=== PATIENT | male | born 1960 | race Caucasian/White ===

== ENCOUNTER 2016-12-21 15:58 | Inpatient (IN) | payer OTHER ==
[~2016-12-21] VITALS: Ht 177.8 cm; Wt 84.8 kg
[2016-12-21 16:10] VITALS: BP_SYST 129
[2016-12-21 16:46] LABS: BASOPHILS % (AUTO) 0.5 % (0.0-2.0); EOSINOPHILS % (AUTO) 0.8 % (0.0-4.0); HEMATOCRIT 44.1 % (36-54); HEMOGLOBIN 14.6 g/dL (14.0-18.0); LYMPHOCYTES # (AUTO) 1.3 K/uL (1.0-5.5); MEAN CORPUSCULAR HEMOGLOBIN 29 pg (27-31); MEAN CORPUSCULAR HGB CONC 33 % (32-36); MEAN CORPUSCULAR VOLUME 87 fL (79.0-98.0); MONOCYTES # (AUTO) 0.7 K/uL (0.0-1.0); NEUTROPHILS # (AUTO) 4.1 K/uL (1.8-7.7); NEUTROPHILS % (AUTO) 64.7 % (40.0-70.0); PLATELET COUNT (AUTO) 237 K/uL (130-430); RED BLOOD CELL COUNT(AUTO) 5.07 MIL/uL (4.2-6.2); RED CELL DISTRIBUTION WIDTH 12.5 % (9.0-15.0); WHITE BLOOD COUNT (AUTO) 6.1 K/uL (4.8-10.8)
[2016-12-21 16:57] LABS: BILIRUBIN,URINE NEGATIVE (NEGATIVE); BLOOD, URINE NEGATIVE (NEGATIVE); CLARITY/URINE CLEAR (CLEAR); COLOR,URINE YELLOW (YELLOW); GLUCOSE,URINE NEGATIVE (NEGATIVE); KETONES,URINE NEGATIVE (NEGATIVE); LEUKOCYTE ESTERASE ,URINE NEGATIVE (NEGATIVE); NITRITE, URINE NEGATIVE (NEGATIVE); PROTEIN URINE NEGATIVE (NEGATIVE)
[2016-12-21 17:12] LABS: CALCIUM 9.5 mg/dL (8.4-11.0); CREATININE 1.24 mg/dL (0.55-1.30); POTASSIUM 3.8 mmol/L (3.5-5.1)
[2016-12-21 17:14] LABS: INR 1.1 (0.80-1.20); PROTHROMBIN TIME 11.6 SECS (9.5-12.5)
[2016-12-21 17:17] LABS: ALBUMIN 4.1 g/dL (3.4-4.8)
[2016-12-21] MEDS: KETOROLAC TROMETHAMINE 60 MG/2 ML VIAL IM ONE ×2 (17:45→17:48)
[2016-12-21] MEDS ORDERED: SIMV10TA6 PO (18:40)
[2016-12-21] MEDS ORDERED: LISI10TA5 PO (18:40)
[2016-12-21] MEDS ORDERED: NACL 0.9% 1,000 ML IV ONE (18:45)
[2016-12-21] MEDS ORDERED: cefOXitin 1 GM IVPB PREMIX 50 ML IV ONE (18:45)
[2016-12-21] MEDS ORDERED: MORPHINE 2 MG/ML INJ. SYRINGE IVP PRN (19:15)
[2016-12-21] MEDS ORDERED: ACETAMINOPHEN 325 MG TABLET PO PRN (19:15)
[2016-12-21] MEDS ORDERED: ONDANSETRON HCL 4 MG/2 ML VIAL IVP PRN (19:15)
[2016-12-21 20:00] VITALS: BP_SYST 129
[2016-12-21 20:10] LABS: FREE T4 (FREE THYROXINE) 0.8 ng/dL (0.6-1.6); THYROID STIMULATING HORMONE 2.34 uIu/mL (0.34-4.82)
[2016-12-21 20:29] VITALS: BP_SYST 138
[2016-12-21] MEDS ORDERED: LISINOPRIL 10 MG TABLET (PRINIVIL) PO ONE (22:00)
[2016-12-21] MEDS ORDERED: SIMVASTATIN 10 MG TABLET PO ONE (22:00)
[2016-12-21] MEDS: DOCUSATE SODIUM 100 MG CAPSULE PO SCH (22:51)
[2016-12-21] MEDS: NACL 0.9% 1,000 ML IV SCH (23:38)
[2016-12-22 01:12] VITALS: BP_SYST 136
[2016-12-22 06:02] VITALS: BP_SYST 115
[2016-12-22 09:04] LABS: BASOPHILS % (AUTO) 0.4 % (0.0-2.0); EOSINOPHILS # (AUTO) 0.1 K/uL (0.0-0.4); EOSINOPHILS % (AUTO) 0.8 % (0.0-4.0); HEMATOCRIT 47.2 % (36-54); HEMOGLOBIN 15.5 g/dL (14.0-18.0); LYMPHOCYTES # (AUTO) 1.4 K/uL (1.0-5.5); LYMPHOCYTES % (AUTO) 20.3 % (20.5-51.5); MEAN CORPUSCULAR HEMOGLOBIN 29 pg (27-31); MEAN CORPUSCULAR HGB CONC 33 % (32-36); MEAN CORPUSCULAR VOLUME 89 fL (79.0-98.0); MONOCYTES # (AUTO) 0.6 K/uL (0.0-1.0); MONOCYTES % (AUTO) 8.6 % (1.7-9.3); NEUTROPHILS % (AUTO) 69.9 % (40.0-70.0); PLATELET COUNT (AUTO) 241 K/uL (130-430); RED BLOOD CELL COUNT(AUTO) 5.33 MIL/uL (4.2-6.2); RED CELL DISTRIBUTION WIDTH 12.3 % (9.0-15.0); WHITE BLOOD COUNT (AUTO) 7.1 K/uL (4.8-10.8)
[2016-12-22] MEDS: DOCUSATE SODIUM 100 MG CAPSULE PO SCH (09:07)
[2016-12-22] MEDS: NACL 0.9% 1,000 ML IV SCH ×3 (09:12→19:55)
[2016-12-22 09:26] LABS: CALCIUM 9.6 mg/dL (8.4-11.0); CREATININE 1.2 mg/dL (0.55-1.30); POTASSIUM 3.8 mmol/L (3.5-5.1)
[2016-12-22 09:31] LABS: ALBUMIN 3.8 g/dL (3.4-4.8); TOTAL BILIRUBIN 3.8 mg/dL (0.0-1.0)
[2016-12-22 12:32] VITALS: BP_SYST 125
[2016-12-22 16:42] VITALS: BP_SYST 134
[2016-12-22] MEDS ORDERED: LYR50 PO (18:46)
[2016-12-22] MEDS ORDERED: OXYC10TA71 PO (18:46)
[2016-12-22] MEDS ORDERED: LOSA100T11 PO (18:46)
[2016-12-22] MEDS ORDERED: ZOLP10TA6 PO (18:46)
[2016-12-22] MEDS ORDERED: NOR10 PO (18:46)
[2016-12-22] MEDS ORDERED: IBUP-1480 PO (18:46)
[2016-12-22] MEDS ORDERED: AMIT75TA2 PO (18:46)
[2016-12-22 20:00] VITALS: BP_SYST 129
[2016-12-22] MEDS ORDERED: SIMVASTATIN 10 MG TABLET PO SCH (21:00)
[2016-12-22] MEDS ORDERED: LISINOPRIL 10 MG TABLET (PRINIVIL) PO SCH (21:00)
[2016-12-23 00:16] VITALS: BP_SYST 115
[2016-12-23 04:29] VITALS: BP_SYST 120
[2016-12-23] MEDS: NACL 0.9% 1,000 ML IV SCH (04:35)
[2016-12-23 06:21] LABS: HEMOGLOBIN A1C 4.9 % (4.8-5.6)
[2016-12-23 06:56] LABS: BASOPHILS % (AUTO) 0.4 % (0.0-2.0); EOSINOPHILS # (AUTO) 0.1 K/uL (0.0-0.4); EOSINOPHILS % (AUTO) 1.5 % (0.0-4.0); HEMATOCRIT 39.2 % (36-54); HEMOGLOBIN 13.2 g/dL (14.0-18.0); LYMPHOCYTES # (AUTO) 1.2 K/uL (1.0-5.5); LYMPHOCYTES % (AUTO) 25.4 % (20.5-51.5); MEAN CORPUSCULAR HEMOGLOBIN 30 pg (27-31); MEAN CORPUSCULAR HGB CONC 34 % (32-36); MEAN CORPUSCULAR VOLUME 89 fL (79.0-98.0); MONOCYTES # (AUTO) 0.5 K/uL (0.0-1.0); MONOCYTES % (AUTO) 10.7 % (1.7-9.3); NEUTROPHILS # (AUTO) 2.8 K/uL (1.8-7.7); PLATELET COUNT (AUTO) 202 K/uL (130-430); RED BLOOD CELL COUNT(AUTO) 4.42 MIL/uL (4.2-6.2); RED CELL DISTRIBUTION WIDTH 12.1 % (9.0-15.0); WHITE BLOOD COUNT (AUTO) 4.6 K/uL (4.8-10.8)
[2016-12-23 07:12] LABS: ALBUMIN 3.4 g/dL (3.4-4.8); CALCIUM 9.2 mg/dL (8.4-11.0); CREATININE 1.11 mg/dL (0.55-1.30); PHOSPHORUS 3.6 mg/dL (2.7-4.5); POTASSIUM 3.6 mmol/L (3.5-5.1); TOTAL BILIRUBIN 3.3 mg/dL (0.0-1.0)
[2016-12-23 08:05] VITALS: BP_SYST 116
[2016-12-23] MEDS ORDERED: ONDA4TAB5 PO (08:14)
[2016-12-23] MEDS ORDERED: METR500T PO (08:14)
[2016-12-23] MEDS ORDERED: LEVO750T45 PO (08:14)
[2016-12-23] MEDS ORDERED: metroNIDAZOLE 250 mg/NS 50 ML IV SCH (08:15)
[2016-12-23] MEDS ORDERED: LEVOFLOXACIN 250 MG/D5W 50 ML IV SCH (08:15)
[2016-12-23 08:38] LABS: T4 (THYROXINE) 6.7 ug/dL (4.5-12.0)
[2016-12-23 12:12] VITALS: BP_SYST 116
== END 2016-12-23 13:50 | disposition home or self-care (01) | DRG 392 ==
LOC: SED 15:58 → STU 19:12
PROVIDERS: ADMIT Family Medicine; ATTEND Family Medicine
DX: K57.92 Diverticulitis of intestine, part unspecified, without perforation or abscess without bleeding (principal); N28.1 Cyst of kidney, acquired; K80.20 Calculus of gallbladder without cholecystitis without obstruction; E78.5 Hyperlipidemia, unspecified; E80.4 Gilbert syndrome; I10 Essential (primary) hypertension; K57.90 Diverticulosis of intestine, part unspecified, without perforation or abscess without bleeding; E80.6 Other disorders of bilirubin metabolism; Z88.0 Allergy status to penicillin
CPT/HCPCS: 36415; 74181; 76700-TC; 80053; 80061; 81003; 82150-TC; 83036; 83605; 83690-TC; 83735-TC; 83880; 84100-TC; 84436; 84439; 84443-TC; 84479; 85025; 85610-TC; 85730-TC; 87040-TC; 96365; 96367; 99285; J0694; J1885; J1956; J3490; J7030

== ENCOUNTER 2017-12-25 22:42 | Inpatient (IN) | payer OTHER ==
[~2017-12-25] VITALS: Ht 177.8 cm; Wt 86.2 kg
[~2017-12-25 22:42] MED LIST: AMIT75TA2 PO; IBUP-1970 PO; LEVO750T45 PO; LISI10TA5 PO; LOSA100T3 PO; LYR50 PO; METR500T PO; NOR10 PO; ONDA4TAB5 PO; OXYC10TA56 PO; SIMV10TA6 PO; ZOLP10TA6 PO
[2017-12-25] MEDS ORDERED: NACL 0.9% 1,000 ML IV ONE (22:44)
[2017-12-25 22:45] VITALS: BP_SYST 146
[2017-12-25] MEDS ORDERED: ONDANSETRON HCL 4 MG/2 ML VIAL IVP ONE (22:45)
[2017-12-25] MEDS ORDERED: MORPHINE 4 MG/ML INJ. SYRINGE IVP ONE (23:15)
[2017-12-25] MEDS ORDERED: NA PHOS,M-B/NA PHOS,DI-BA 118 ML (FLEET ENEMA) RC ONE (23:15)
[2017-12-25 23:23] LABS: BASOPHILS % (AUTO) 0.5 % (0.0-2.0); EOSINOPHILS % (AUTO) 0.5 % (0.0-4.0); HEMATOCRIT 46.6 % (36-54); HEMOGLOBIN 15.4 g/dL (14.0-18.0); LYMPHOCYTES # (AUTO) 0.9 K/uL (1.0-5.5); LYMPHOCYTES % (AUTO) 10.4 % (20.5-51.5); MEAN CORPUSCULAR HEMOGLOBIN 30 pg (27-31); MEAN CORPUSCULAR HGB CONC 33 % (32-36); MEAN CORPUSCULAR VOLUME 92 fL (79.0-98.0); MONOCYTES # (AUTO) 0.7 K/uL (0.0-1.0); MONOCYTES % (AUTO) 7.8 % (1.7-9.3); NEUTROPHILS # (AUTO) 6.7 K/uL (1.8-7.7); NEUTROPHILS % (AUTO) 80.8 % (40.0-70.0); PLATELET COUNT (AUTO) 186 K/uL (130-430); RED BLOOD CELL COUNT(AUTO) 5.09 MIL/uL (4.2-6.2); RED CELL DISTRIBUTION WIDTH 12.2 % (9.0-15.0); WHITE BLOOD COUNT (AUTO) 8.3 K/uL (4.8-10.8)
[2017-12-25 23:31] LABS: CREATININE 1.26 mg/dL (0.55-1.30); POTASSIUM 3.8 mmol/L (3.5-5.1)
[2017-12-25 23:35] LABS: PROTHROMBIN TIME 10.5 SECS (9.5-12.5)
[2017-12-25 23:38] LABS: TOTAL BILIRUBIN 4.3 mg/dL (0.0-1.0)
[2017-12-25 23:55] LABS: BILIRUBIN,URINE 1+ (NEGATIVE); BLOOD, URINE NEGATIVE (NEGATIVE); CLARITY/URINE CLEAR (CLEAR); COLOR,URINE YELLOW (YELLOW); GLUCOSE,URINE NEGATIVE (NEGATIVE); KETONES,URINE NEGATIVE (NEGATIVE); LEUKOCYTE ESTERASE ,URINE NEGATIVE (NEGATIVE); NITRITE, URINE NEGATIVE (NEGATIVE); PROTEIN URINE 1+ (NEGATIVE)
[2017-12-26 00:04] LABS: BACTERIA,URINE FEW /HPF (None Seen); MUCUS,URINE None Seen /LPF (None Seen); RBC,URINE 0-3 /HPF (0-3); WBC,URINE 0-3 /HPF (0-3); YEAST,URINE None Seen /HPF (None Seen)
[2017-12-26] MEDS ORDERED: MORPHINE 2 MG/ML INJ. SYRINGE IVP PRN ×3 (00:30→06:00)
[2017-12-26] MEDS ORDERED: ONDANSETRON HCL 4 MG/2 ML VIAL IVP PRN ×2 (00:30→06:00)
[2017-12-26 01:31] VITALS: BP_SYST 153
[2017-12-26] MEDS: D5NS 1,000 ML IV SCH ×2 (02:19→15:47)
[2017-12-26] MEDS ORDERED: MUPIROCIN 2% TOPICAL OINTMENT 22 GM NS PRN (06:00)
[2017-12-26] MEDS ORDERED: POTASSIUM CHLORIDE 20 MEQ TAB.PRT.SR PO PRN (06:00)
[2017-12-26] MEDS ORDERED: LORazepam 2 MG/ML VIAL IVP PRN (06:00)
[2017-12-26] MEDS ORDERED: DOCUSATE SODIUM 100 MG CAPSULE PO PRN (06:00)
[2017-12-26] MEDS ORDERED: ZOLPIDEM TARTRATE 5 MG TABLET PO PRN (06:00)
[2017-12-26] MEDS ORDERED: ACETAMINOPHEN 325 MG TABLET PO PRN (06:00)
[2017-12-26] MEDS ORDERED: MAGNESIUM SULFATE 50 ML IV PRN (06:00)
[2017-12-26 08:24] VITALS: BP_SYST 142
[2017-12-26] MEDS: LISINOPRIL 10 MG TABLET (PRINIVIL) PO SCH (09:43)
[2017-12-26 10:36] LABS: BARBITURATE, URINE NEGATIVE (NEG <=200); BENZODIAZEPINE, URINE NEGATIVE (NEG <=150); CANNABINOID, URINE NEGATIVE (NEG <=50); COCAINE, URINE NEGATIVE (NEG <=150); METHAMPHETAMINES SCREEN,URINE NEGATIVE (NEG <=500); OPIATE, URINE POSITIVE (NEG <=100); PHENCYCLIDINE SCREEN,URINE NEGATIVE (NEG <=25); UR TRICYCLIC ANTIDEPRESSANTS NEGATIVE (NEG <=300); URINE AMPHETAMINE NEGATIVE (NEG <=500); URINE METHADONE NEGATIVE (NEG <=200); URINE OXYCODONE SCREEN NEGATIVE (NEG <=100); URINE PROPOXYPHENE SCREEN NEGATIVE (NEG <=300)
[2017-12-26 12:44] VITALS: BP_SYST 125
[2017-12-26] MEDS ORDERED: CLINDAMYCIN PHOSPHATE 900 mg/50mL D5W IV ONE (14:00)
[2017-12-26] MEDS ORDERED: MIDAZOLAM HCL 5 MG/5 ML VIAL IVP ONE (14:00)
[2017-12-26] MEDS ORDERED: KETOROLAC TROMETHAMINE 30 MG VIAL IVP ONE (14:00)
[2017-12-26] MEDS ORDERED: ROCURONIUM BROMIDE 10 MG/ML (ZEMURON) IV ONE (14:00)
[2017-12-26] MEDS ORDERED: PROPOFOL 200MG/ 20ML VIAL (DIPRIVAN) IV ONE (14:00)
[2017-12-26] MEDS ORDERED: ONDANSETRON HCL 4 MG/2 ML VIAL IVP ONE (14:00)
[2017-12-26] MEDS ORDERED: ATROPINE SULFATE 0.4 MG/ML VIAL IVP ONE (14:00)
[2017-12-26] MEDS ORDERED: LR 1,000 ML IV.SOLN IV ONE (14:00)
[2017-12-26] MEDS ORDERED: SEVOFLURANE 15 MIN GAS INH ONE (14:00)
[2017-12-26] MEDS ORDERED: fentaNYL CITRATE 250 MCG/5 ML AMP IV ONE (14:00)
[2017-12-26] MEDS ORDERED: BUPIVACAINE /PF 0.25% 30 ML VIAL INJ ONE (14:00)
[2017-12-26] MEDS ORDERED: DEXAMETHASONE SOD PHOSPHATE 4 MG/ML VIAL IVP ONE (14:00)
[2017-12-26 17:01] VITALS: BP_SYST 128
[2017-12-26 20:00] VITALS: BP_SYST 148
[2017-12-26] MEDS ORDERED: LISINOPRIL 10 MG TABLET (PRINIVIL) PO SCH (21:00)
[2017-12-27 00:34] VITALS: BP_SYST 124
[2017-12-27] MEDS: D5NS 1,000 ML IV SCH ×2 (01:53→11:37)
[2017-12-27 06:51] LABS: BASOPHILS # (AUTO) 0.1 K/uL (0.0-0.2); BASOPHILS % (AUTO) 1.4 % (0.0-2.0); EOSINOPHILS # (AUTO) 0.2 K/uL (0.0-0.4); EOSINOPHILS % (AUTO) 3.6 % (0.0-4.0); HEMATOCRIT 41.8 % (36-54); HEMOGLOBIN 13.9 g/dL (14.0-18.0); LYMPHOCYTES % (AUTO) 23.4 % (20.5-51.5); MEAN CORPUSCULAR HEMOGLOBIN 31 pg (27-31); MEAN CORPUSCULAR HGB CONC 33 % (32-36); MEAN CORPUSCULAR VOLUME 92 fL (79.0-98.0); MONOCYTES # (AUTO) 0.5 K/uL (0.0-1.0); MONOCYTES % (AUTO) 10.5 % (1.7-9.3); NEUTROPHILS # (AUTO) 2.6 K/uL (1.8-7.7); RED BLOOD CELL COUNT(AUTO) 4.56 MIL/uL (4.2-6.2); RED CELL DISTRIBUTION WIDTH 12.4 % (9.0-15.0); WHITE BLOOD COUNT (AUTO) 4.4 K/uL (4.8-10.8)
[2017-12-27 07:10] LABS: ALBUMIN 3.2 g/dL (3.4-4.8); CALCIUM 8.5 mg/dL (8.4-11.0); CREATININE 1.15 mg/dL (0.55-1.30); POTASSIUM 3.6 mmol/L (3.5-5.1); TOTAL BILIRUBIN 2.3 mg/dL (0.0-1.0)
[2017-12-27 08:04] VITALS: BP_SYST 139
[2017-12-27] MEDS: LISINOPRIL 10 MG TABLET (PRINIVIL) PO SCH (09:00)
[2017-12-27 10:18] LABS: HEPATITIS A AB, IgM Negative (Negative); HEPATITIS B CORE AB, IgM Negative (Negative); HEPATITIS B SURFACE AG Negative (Negative)
[2017-12-27 11:05] LABS: NEUTROPHILS % (AUTO) 61.1 % (40.0-70.0)
[2017-12-27 11:12] LABS: PLATELET COUNT (AUTO) 168 K/uL (130-430)
[2017-12-27 12:26] VITALS: BP_SYST 129
[2017-12-27 16:48] VITALS: BP_SYST 143
[2017-12-27 20:36] VITALS: BP_SYST 142
[2017-12-28] VITALS (7 sets, daily range): BP systolic 120–160
[2017-12-28] MEDS: D5NS 1,000 ML IV SCH ×3 (00:38→23:39)
[2017-12-28 06:53] LABS: BASOPHILS % (AUTO) 0.4 % (0.0-2.0); EOSINOPHILS # (AUTO) 0.1 K/uL (0.0-0.4); EOSINOPHILS % (AUTO) 2.9 % (0.0-4.0); HEMOGLOBIN 14.1 g/dL (14.0-18.0); LYMPHOCYTES # (AUTO) 1.2 K/uL (1.0-5.5); LYMPHOCYTES % (AUTO) 24.6 % (20.5-51.5); MEAN CORPUSCULAR HGB CONC 34 % (32-36); MONOCYTES # (AUTO) 0.5 K/uL (0.0-1.0); MONOCYTES % (AUTO) 9.8 % (1.7-9.3); NEUTROPHILS # (AUTO) 3.1 K/uL (1.8-7.7); NEUTROPHILS % (AUTO) 62.3 % (40.0-70.0); PLATELET COUNT (AUTO) 176 K/uL (130-430); WHITE BLOOD COUNT (AUTO) 4.9 K/uL (4.8-10.8)
[2017-12-28 07:20] LABS: ALBUMIN 3.3 g/dL (3.4-4.8); CALCIUM 8.6 mg/dL (8.4-11.0); CREATININE 1.22 mg/dL (0.55-1.30); POTASSIUM 3.7 mmol/L (3.5-5.1)
[2017-12-28 08:07] LABS: HEMATOCRIT 41.7 % (36-54); MEAN CORPUSCULAR HEMOGLOBIN 30 pg (27-31); MEAN CORPUSCULAR VOLUME 90 fL (79.0-98.0); RED BLOOD CELL COUNT(AUTO) 4.64 MIL/uL (4.2-6.2); RED CELL DISTRIBUTION WIDTH 12.7 % (9.0-15.0)
[2017-12-28] MEDS: LISINOPRIL 10 MG TABLET (PRINIVIL) PO SCH (09:00)
[2017-12-28] MEDS ORDERED: LR 1,000 ML IV SCH (15:11)
[2017-12-28] MEDS ORDERED: HYDROmorphone 1 MG INJ. 1 MG/ML AMPUL IVP PRN (15:15)
[2017-12-28] MEDS ORDERED: MEPERIDINE HCL/PF 25 MG/ML DISP.SYRIN IVP PRN (15:15)
[2017-12-28] MEDS ORDERED: HYDROmorphone 2 MG/ML VIAL IVP PRN (15:15)
[2017-12-28] MEDS: HYDROmorphone 2 MG/ML VIAL IVP PRN ×2 (15:50→16:18)
[2017-12-28] MEDS ORDERED: HYDROmorphone 2 MG/ML VIAL ONE ×2 (15:55→16:21)
[2017-12-28] MEDS ORDERED: DILTIAZEM HCL 25 MG/5 ML VIAL IVP ONE (16:45)
[2017-12-29 02:15] VITALS: BP_SYST 133
[2017-12-29] MEDS: D5NS 1,000 ML IV SCH (06:19)
[2017-12-29 06:58] LABS: ALBUMIN 3.2 g/dL (3.4-4.8); CALCIUM 8.4 mg/dL (8.4-11.0); CREATININE 1.25 mg/dL (0.55-1.30); POTASSIUM 3.7 mmol/L (3.5-5.1); TOTAL BILIRUBIN 1.6 mg/dL (0.0-1.0)
[2017-12-29 07:15] LABS: BASOPHILS % (AUTO) 0.1 % (0.0-2.0); EOSINOPHILS % (AUTO) 0.2 % (0.0-4.0); HEMATOCRIT 40.8 % (36-54); HEMOGLOBIN 13.7 g/dL (14.0-18.0); LYMPHOCYTES # (AUTO) 0.8 K/uL (1.0-5.5); LYMPHOCYTES % (AUTO) 10.6 % (20.5-51.5); MEAN CORPUSCULAR HEMOGLOBIN 31 pg (27-31); MEAN CORPUSCULAR HGB CONC 34 % (32-36); MEAN CORPUSCULAR VOLUME 91 fL (79.0-98.0); MONOCYTES # (AUTO) 0.6 K/uL (0.0-1.0); MONOCYTES % (AUTO) 8.3 % (1.7-9.3); NEUTROPHILS # (AUTO) 6.3 K/uL (1.8-7.7); NEUTROPHILS % (AUTO) 80.8 % (40.0-70.0); PLATELET COUNT (AUTO) 208 K/uL (130-430); RED CELL DISTRIBUTION WIDTH 12.3 % (9.0-15.0); WHITE BLOOD COUNT (AUTO) 7.7 K/uL (4.8-10.8)
[2017-12-29 08:11] VITALS: BP_SYST 148
[2017-12-29] MEDS: LISINOPRIL 10 MG TABLET (PRINIVIL) PO SCH (09:11)
[2017-12-29] MEDS ORDERED: CEFU250T85 PO (10:17)
[2017-12-29] MEDS ORDERED: HYDR-4272 PO (10:17)
[2017-12-29 11:18] VITALS: BP_SYST 145
[2017-12-29 12:00] VITALS: BP_SYST 145
== END 2017-12-29 12:30 | disposition home or self-care (01) | DRG 419 ==
LOC: SED 22:42 → SMU 12-26 00:25 → STU 12-28 14:50
PROVIDERS: ADMIT General Practice; ATTEND General Practice
PROC: 0FT44ZZ Resection of Gallbladder, Percutaneous Endoscopic Approach (ICD-10-PCS; principal; 2017-12-28 14:30)
DX: K80.00 Calculus of gallbladder with acute cholecystitis without obstruction (principal); R74.0 Nonspecific elevation of levels of transaminase and lactic acid dehydrogenase [LDH]; E66.01 Morbid (severe) obesity due to excess calories; E78.5 Hyperlipidemia, unspecified; I10 Essential (primary) hypertension; K82.8 Other specified diseases of gallbladder; Z90.89 Acquired absence of other organs; Z88.0 Allergy status to penicillin; Z79.899 Other long term (current) drug therapy; K75.9 Inflammatory liver disease, unspecified; Z68.27 Body mass index [BMI] 27.0-27.9, adult
CPT/HCPCS: 36415; 71045; 74181; 80053; 80074; 80307; 81000-TC; 82150-TC; 82550-TC; 83036; 83690-TC; 83735-TC; 84484; 85025; 85610-TC; 85730-TC; 87081; 88304; 93005; 96361; 96374; 96375; 99285; J0461; J1100; J1170; J1885; J2250; J2270; J2405; J2704; J3010; J3475; J3490; J7042; J7060; J7120